=== PATIENT | male | born 1980 | race Caucasian/White ===

== ENCOUNTER 2017-05-24 09:03 | Emergency (ER) | payer BC, MEDICAID, OTHER ==
[2017-05-24 09:04] VITALS: BMI 28.3
[2017-05-24 09:27] VITALS: BP 151/84; PULSE 94; RESP 18; TEMP 97.3; O2SAT 98
--- NOTE | 2017-05-24 09:34 | ED PDOC ---
Lower Extremity Pain/Injury Time Seen by Provider: 05/24/17 09:16 Chief Complaint (Nursing): Lower Extremity Problem/Injury Chief Complaint (Provider): Ankle injury History Per: Patient History/Exam Limitations: no limitations Onset/Duration Of Symptoms: Days (1230 last night) Current Symptoms Are (Timing): Still Present Additional Complaint(s): Ankle got twisted after misstep on the bus. No injury to knee or head. No LOC. No numbness. Able to walk on left ankle, with pain. No foot pain. Past Medical History Reviewed: Nursing Documentation, Vital Signs Vital Signs: Last Vital Signs Temp 97.3 F L 05/24/17 09:26 Pulse 94 H 05/24/17 09:26 Resp 18 05/24/17 09:26 BP 151/84 H 05/24/17 09:26 Pulse Ox 98 05/24/17 09:26 - Medical History PMH: No Chronic Diseases - Surgical History Surgical History: No Surg Hx - Family History Family History: States: Unknown Family Hx - Living Arrangements Living Arrangements: With Family - Social History Current smoker - smoking cessation education provided: No Alcohol: None Drugs: Denies - Immunization History Hx Tetanus Toxoid Vaccination: Yes Hx Influenza Vaccination: No Hx Pneumococcal Vaccination: No - Home Medications Home Medications: Ambulatory Orders Medication Instructions Recorded Amoxicillin/Clavulanate [Augmentin 1 tab PO BID #20 tab 12/30/16 875 MG-125 MG] Famotidine [Pepcid] 1 tab PO BID #14 tab 12/30/16 Ibuprofen [Motrin] 600 mg PO Q6 #25 tab 12/30/16 Pravastatin Sodium [Pravachol] 20 mg PO HS 12/30/16 Ibuprofen [Motrin] 600 mg PO TID 7 Days tab 05/24/17 - Allergies Allergies/Adverse Reactions: Allergies Allergy/AdvReac Type Severity Reaction Status Date / Time No Known Allergies Allergy Verified 05/24/17 09:26 Review of Systems Constitutional: Negative for: Weakness Cardiovascular: Negative for: Chest Pain, Edema Respiratory: Negative for: Shortness of Breath Musculoskeletal: Positive for: Leg Pain. Negative for: Neck Pain, Shoulder Pain , Arm Pain, Back Pain, Hand Pain, Foot Pain Neurological: Negative for: Weakness, Numbness Physical Exam - Reviewed Nursing Documentation Reviewed: Yes Vital Signs Reviewed: Yes - Physical Exam Appears: Positive for: Non-toxic, No Acute Distress Cardiovascular/Chest: Positive for: Regular Rate, Rhythm Respiratory: Positive for: CNT, Normal Breath Sounds Pulses-Dorsalis Pedis (L): 2+ Pulses-Post. Tibialis (L): 2+ Back: Positive for: Normal Inspection. Negative for: L CVA Tenderness, R CVA Tenderness Extremity: Positive for: Tenderness (L ankle lateral malleolus with swelling; Limited ROM due to pain.). Negative for: Normal ROM Neurologic/Psych: Positive for: Alert, Oriented - ECG O2 Sat by Pulse Oximetry: 98 Pulse Ox Interpretation: Normal - Radiology X-Ray: Interpreted by Me, Viewed By Me X-Ray Interpretation: Fracture (? lateral) - Progress ED Course And Treament: 1052: Spoke with podiatry. Will see pt. in ED. 1134: Podiatry saw pt. Does not meet criteria for admit. Splinted and fu with Dr. Mcgarry. Crutches. Disposition - Clinical Impression Clinical Impression: Ankle fracture - Patient ED Disposition Is Patient to be Admitted: No Counseled Patient/Family Regarding: Studies Performed, Diagnosis, Need For Followup, Rx Given - Disposition Referrals: Ruthie Mcgarry DPM [Staff Provider] - 05/25/17 Disposition: Routine/Home Disposition Time: 11:36 Condition: STABLE Additional Instructions: Return if not better in 3 days. Prescriptions: Ibuprofen [Motrin] 600 mg PO TID 7 Days tab Instructions: Ankle Fracture (ED) Forms: [employer] (Tajik), [facility] ED School/Work Excuse
--- NOTE | 2017-05-24 11:25 | RAD ---
PROCEDURE: Left Ankle Radiographs. HISTORY: pain COMPARISON: None FINDINGS: BONES: Normal. No fracture. JOINTS: Normal. No osteoarthritis. Ankle mortise maintained. Talar dome intact SOFT TISSUES: Lateral malleolar soft tissue swelling. Small ankle joint effusion. OTHER FINDINGS: None. IMPRESSION: Lateral malleolar soft tissue swelling and small ankle joint effusion without demonstrated fracture or dislocation.
--- NOTE | 2017-05-24 11:36 | CP.PCM.CON ---
History of Present Illness - History of Present Illness History of Present Illness: 37 y/o male seen at bedside in ED after sustaining a left ankle inversion sprain last night at around midnight after stepping off a curb the wrong way. Pt states he went home and went straight to sleep but when he woke this morning it was painful and difficult to bear weight. Pt says he cannot move the ankle much at it has been swelling up through the morning. Pt denies attempting any treatment. Pt describes the pain as throbbing in nature. Pt denies F/C/N/V/CP/ SOB. Pt denies burning, tingling or numbness to the left lower extremity. PMH: denies PSH: denies All: NKDA Social: denies EtOH, cigarette or illicit drug use Review of Systems - Review of Systems All systems: reviewed and no additional remarkable complaints except (per HPI) Past Patient History - Past Social History Alcohol: None Drugs: Denies - PSYCHIATRIC Hx Substance Use: No - SURGICAL HISTORY Hx Surgeries: No - ANESTHESIA Hx Anesthesia: No Meds Home Medications: Home Medication List Medication Instructions Recorded Confirmed Type Ibuprofen [Motrin] 600 mg PO TID 7 Days tab 05/24/17 Rx Allergies/Adverse Reactions: Allergies Allergy/AdvReac Type Severity Reaction Status Date / Time No Known Allergies Allergy Verified 05/24/17 09:26 Physical Exam - Constitutional Appears: Well, Non-toxic, No Acute Distress - Extremities Exam Additional comments: Left lower extremity focused examination: Vasc: DP/PT pulses palpable 2/4. Temperature gradient warm to warm. Localized non pitting pedal edema noted to lateral ankle joint. CFT < 3 sec to all digits Derm: Minimal erythema noted to lateral malleolar region with no ecchymosis, no abrasions or skin lesions, no clinical suspicion of infection Neuro: Protective sensation grossly intact Ortho: Limited ankle inversion, dorsiflexion and plantarflexion due to guarding. Moderate tenderness elicited upon passive inversion, mild to moderate tenderness on passive dorsiflexion and plantarflexion. - Neurological Exam Neurological exam: Alert, Oriented x3 - Psychiatric Exam Psychiatric exam: Normal Affect, Normal Mood Results - Vital Signs Recent Vital Signs: Last Vital Signs Temp 97.3 F L 05/24/17 09:26 Pulse 94 H 05/24/17 09:26 Resp 18 05/24/17 09:26 BP 151/84 H 05/24/17 09:26 Pulse Ox 98 05/24/17 10:52 Assessment & Plan - Assessment and Plan (Free Text) Assessment: 37 y/o male with left ankle sprain secondary to trauma Plan: Pt seen and evaluated in ED Discussed plan in detail with attending Dr. Mcgarry Left ankle x-rays reviewed by me - reveal no acute fractures or dislocations; significant soft tissue swelling surrounding lateral malleolus. Normal tib-fib overlap and lateral gutter. Increased haziness noted to lateral aspect of lateral malleolus at level of ankle joint - cannot r/o heirline fx at this time Posterior splint applied to left lower extremity Dispensed crutches to patient and provided proper crutch training Pt instructed to keep splint clean, dry and intact and not to bear any weight until he is seen at next visit Pt advised to take Ibuprofen 600mg as needed to help relieve pain and swelling Pt to follow up at [facility] podiatry clinic next Tuesday with Dr. Mcgarry Thank you for this consult
== END 2017-05-24 11:53 | disposition home or self-care (01) ==
LOC: H.ER 09:03
DX: S93.402A Sprain of unspecified ligament of left ankle, initial encounter (principal); X50.9XXA Other and unspecified overexertion or strenuous movements or postures, initial encounter; Y92.89 Other specified places as the place of occurrence of the external cause
CPT/HCPCS: 29515; 73610; 96372; 99282; J1885

== ENCOUNTER 2017-06-02 16:03 | Emergency (ER) | payer OTHER ==
[2017-06-02 16:03] VITALS: BMI 28.3
[2017-06-02 16:17] VITALS: BP 148/84; PULSE 74; RESP 18; TEMP 98.1; O2SAT 100
--- NOTE | 2017-06-02 17:07 | ED PDOC ---
HPI: Wound Care - HPI Time Seen by Provider: 06/02/17 16:21 Chief Complaint (Nursing): Lower Extremity Problem/Injury Chief Complaint (Provider): Right Ankle Wound Check History Per: Patient Exam Limitations: no limitations Additional Complaint(s): Dick Cabrera is a 37 year old male that presents to the ED for a wound check. Patient was seen in the ED one week ago for a right ankle fracture and was placed in a splint. He was told to follow up with a investigator utility bill complaints a few days later, but states that he was unable to follow up because he could not get an appointment. Patient states that he removed his splint on his own this morning. He reports that he wants to return to work on 06/06/17, and presents with papers that he requests to have filled out. Past Medical History Reviewed: Historical Data, Nursing Documentation, Vital Signs Vital Signs: Last Vital Signs Temp 98.1 F 06/02/17 16:13 Pulse 74 06/02/17 16:13 Resp 18 06/02/17 16:13 BP 148/84 06/02/17 16:13 Pulse Ox 100 06/02/17 16:13 - Family History Family History: States: Unknown Family Hx - Immunization History Hx Tetanus Toxoid Vaccination: Yes Hx Influenza Vaccination: No Hx Pneumococcal Vaccination: No - Home Medications Home Medications: Ambulatory Orders Medication Instructions Recorded Amoxicillin/Clavulanate [Augmentin 1 tab PO BID #20 tab 12/30/16 875 MG-125 MG] Famotidine [Pepcid] 1 tab PO BID #14 tab 12/30/16 Ibuprofen [Motrin] 600 mg PO Q6 #25 tab 12/30/16 Pravastatin Sodium [Pravachol] 20 mg PO HS 12/30/16 Ibuprofen [Motrin] 600 mg PO TID 7 Days tab 05/24/17 - Allergies Allergies/Adverse Reactions: Allergies Allergy/AdvReac Type Severity Reaction Status Date / Time No Known Allergies Allergy Verified 05/24/17 09:26 Review of Systems ROS Statement: Except As Marked, All Systems Reviewed And Found Negative Musculoskeletal: Positive for: Other (right ankle fracture reevaluation) Physical Exam - Reviewed Nursing Documentation Reviewed: Yes Vital Signs Reviewed: Yes - Physical Exam Appears: Positive for: Non-toxic, No Acute Distress Head Exam: Positive for: ATRAUMATIC, NORMOCEPHALIC Skin: Positive for: Normal Color, Warm Eye Exam: Positive for: Normal appearance, EOMI, PERRL Pulses-Dorsalis Pedis (L): 2+ Pulses-Dorsalis Pedis (R): 2+ Pulses-Post. Tibialis (L): 2+ Pulses-Post. Tibialis (R): 2+ Extremity: Positive for: Normal ROM, Swelling (mild swelling to right ankle). Negative for: Deformity Neurologic/Psych: Positive for: Alert, Oriented. Negative for: Motor/Sensory Deficits - ECG O2 Sat by Pulse Oximetry: 100 (RA) Pulse Ox Interpretation: Normal Medical Decision Making Medical Decision Making: Impression: Right Ankle Sprain Plan: * Informed patient on the need to follow up with a investigator utility bill complaints in order to receive adequate care for his ankle. Will give patient a return to work form. Stable for discharge home. Scribe Attestation: Documented by Saida Alarcon, acting as a scribe for Charley Liao PA-C. Provider Scribe Attestation: All medical record entries made by the Scribe were at my direction and personally dictated by me. I have reviewed the chart and agree that the record accurately reflects my personal performance of the history, physical exam, medical decision making, and the department course for this patient. I have also personally directed, reviewed, and agree with the discharge instructions and disposition. Disposition - Clinical Impression Clinical Impression: Ankle injury - Disposition Disposition: Routine/Home Disposition Time: 17:10 Condition: STABLE Instructions: Ankle Sprain (ED) Forms: [employer] (Kuwaiti), [facility] ED School/Work Excuse
== END 2017-06-02 17:15 | disposition home or self-care (01) ==
LOC: H.ER 16:03
DX: Z47.89 Encounter for other orthopedic aftercare (principal)

== ENCOUNTER 2017-06-08 18:54 | Emergency (ER) | payer SELFPAY ==
[2017-06-08 18:55] VITALS: BMI 28.3
--- NOTE | 2017-06-08 19:47 | ED PDOC ---
HPI: General Adult Time Seen by Provider: 06/08/17 19:29 Chief Complaint (Nursing): Foreign Body Chief Complaint (Provider): Foreign Body in Left Ear History Per: Patient Onset/Duration Of Symptoms: Days (x 4) Additional Complaint(s): Dick is a 37 year old male who presents to the Emergency Department for foreign body removal in left ear. PMD: No Provider Past Medical History Reviewed: Historical Data, Nursing Documentation, Vital Signs - Medical History PMH: No Chronic Diseases - Surgical History Surgical History: No Surg Hx - Family History Family History: States: Unknown Family Hx - Immunization History Hx Tetanus Toxoid Vaccination: Yes Hx Influenza Vaccination: No Hx Pneumococcal Vaccination: No - Home Medications Home Medications: Ambulatory Orders Medication Instructions Recorded Amoxicillin/Clavulanate [Augmentin 1 tab PO BID #20 tab 12/30/16 875 MG-125 MG] Famotidine [Pepcid] 1 tab PO BID #14 tab 12/30/16 Ibuprofen [Motrin] 600 mg PO Q6 #25 tab 12/30/16 Pravastatin Sodium [Pravachol] 20 mg PO HS 12/30/16 Ibuprofen [Motrin] 600 mg PO TID 7 Days tab 05/24/17 - Allergies Allergies/Adverse Reactions: Allergies Allergy/AdvReac Type Severity Reaction Status Date / Time No Known Allergies Allergy Verified 05/24/17 09:26 Review of Systems ENT: Positive for: Other (Foreign Body in Left Ear) Physical Exam - Physical Exam Appears: Positive for: Non-toxic ENT: Positive for: Other (Q-Tip stuck in Left Ear) Neurologic/Psych: Positive for: Alert, Oriented (x 3) Medical Decision Making Medical Decision Making: Time: 19:35 Foreign Body Removal from Left Ear Q-Tip stuck in left ear. Visible in Ophthalmoscope. Removed from left ear using alligator forceps. Tympanic membrane is normal appearing. Scribe Attestation: Documented by Latrell Cool, acting as a scribe for Pamela Garcia PA-C Provider Scribe Attestation: All medical record entries made by the Scribe were at my direction and personally dictated by me. I have reviewed the chart and agree that the record accurately reflects my personal performance of the history, physical exam, medical decision making, and the department course for this patient. I have also personally directed, reviewed, and agree with the discharge instructions and disposition. Disposition - Clinical Impression Clinical Impression: Foreign body in ear - Patient ED Disposition Is Patient to be Admitted: No - Disposition Disposition: Routine/Home Disposition Time: 19:45 Condition: STABLE Instructions: Ear Foreign Body (ED) Forms: [employer] (Lithuanian)
== END 2017-06-08 19:54 | disposition home or self-care (01) ==
LOC: H.ER 18:54
DX: T16.2XXA Foreign body in left ear, initial encounter (principal)